=== PATIENT | female | born 1930 | race Caucasian/White ===

== ENCOUNTER 2017-02-01 18:04 | Emergency (ER) | payer MEDICARE, BC ==
[~2017-02-01] VITALS: Ht 154.9 cm; Wt 63.0 kg
[~2017-02-01 18:04] MED LIST: ASPI81 PO; CALC250T PO; CARV25TA PO; CO Q200C PO; FOSA70TA PO; LEVO.075 PO; NEUR600T PO; NITR-29 PO; NITR0.4S SL; OMEP20TA39 PO; ROSU5 PO; TRAV0.00 EACH EYE; [UNRECOGNIZED DRUG - CODE] PO
[2017-02-01 18:08] VITALS: BP 140/71; PULSE 80; RESP 16; TEMP 97.8; O2SAT 97
--- NOTE | 2017-02-01 18:22 | PD ---
HPI Chief Complaint: ENT Complaint Time Seen by Provider: 18:19 Travel History International Travel<30 days: No Contact w/Intl Traveler<30days: No Traveled to known affect area: No History of Present Illness HPI 86-year-old female with hypertension, hyperlipidemia and hypothyroidism presents to the emergency department for evaluation of bilateral ear obstructions 2 days. Patient states that she has wax blocking her ears and she has decreased hearing. States this has happened to her in the past and she's had to have them flushed. Denies any fever, chills, nausea, vomiting, dizziness , ear pain, ear pressure. No other complaints. 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 of urine pt has mortensen cath in place on08/17/15) Hypertension: Yes Immune Disorder: Yes (RHEUMATOID ARTHRITIS) Musculoskeletal: Yes (SPINAL STENOSIS OSTEOPOROSIS POLYMYALGIA) Neurologic: No Psychiatric: No Respiratory: No Myocardial Infarction: No Thyroid Disease: Yes Past Surgical History Abdominal Surgery: Yes (bowel resection r/t bowel obstruction) AICD: No Appendectomy: Yes Cardiac Surgery: No Ear Surgery: Yes Endocrine Surgery: No Eye Surgery: No Genitourinary Surgery: No Gynecologic Surgery: No Joint Replacement: Yes (BL KNEE REPLACEMENTS) Oral Surgery: No Pacemaker: No Thoracic Surgery: No Tonsillectomy: Yes Other Surgery: Yes (back surgery lower) Social History Alcohol Use: No Tobacco Use: No (quit years ago smoked only socially ) Substance Use: No Allergies-Medications (Allergen,Severity, Reaction): Coded Allergies: *MDRO Multi-Drug Resistant Organism (Verified Adverse Reaction, Unknown, ) MRSA (buttock wound) 08/2015 Reported Meds & Prescriptions Reported Meds & Active Scripts Active Reported Probiotic (Lactobacillus Acidophilus) 1 Cap Cap 1 Cap PO DAILY Zinc 50 Mg Tab 50 Mg PO DAILY Colace (Docusate Sodium) 100 Mg Cap 100 Mg PO BID PRN Omeprazole 20 Mg Tab 20 Mg PO DAILY Coenzyme Q10 (Ubidecarenone) 100 Mg Cap 100 Mg PO DAILY Calcium Citrate-Vitamin D 315-250 Mg-Unit Tab 1 Tab PO BID Vitamin C (Ascorbic Acid) 500 Mg Cap 500 Mg PO Aspirin Low Dose (Aspirin) 81 Mg Chew 81 Mg CHEW DAILY Travatan Z Opth Drops (Travoprost) 0.004 % Soln 1 Drop EACH EYE HS Synthroid (Levothyroxine Sodium) 75 Mcg Tab 75 Mcg PO DAILY Nitrostat SL (Nitroglycerin) 0.4 Mg Subl 0.4 Mg SL DIRECTED PRN 1 tablet under the tongue as needed for chest pain. Repeat every 5 minutes for a total of 3 DOSES or call 911 if NO relief. Gabapentin 600 Mg Tab 600 Mg PO TID Carvedilol 25 Mg Tab 25 Mg PO BID Review of Systems Except as stated in HPI: all other systems reviewed are Neg Physical Exam Narrative GENERAL: Well-nourished and well-developed pleasant patient in no acute distress who is nontoxic appearing. SKIN: Warm and dry. HEAD: Normocephalic and atraumatic. EYES: No injection, drainage, or hyphema noted. PERRLA. EOMI. ENT: No nasal drainage noted. Oropharynx is clear. Bilateral ear canals with cerumen impaction. Unable to view tympanic membranes. NECK: Supple and the trachea is midline. CARDIOVASCULAR: Regular rate and rhythm. RESPIRATORY: Breath sounds are equal bilaterally with no accessory muscle use, wheezing, rhonchi, or crackles. NEUROLOGICAL: Awake, alert, and oriented. Normal speech and gait. Cranial nerves are grossly intact. Data Data Last Documented VS Vital Signs Date Time Temp Pulse Resp B/P Pulse Ox O2 Delivery O2 Flow Rate FiO2 02/01/17 18:08 97.8 80 16 140/71 97 MDM Medical Decision Making Medical Screen Exam Complete: Yes Emergency Medical Condition: Yes Differential Diagnosis Cerumen impaction versus obstruction versus otitis media versus otitis externa Narrative Course 86-year-old female presents to the emergency department for evaluation of bilateral cerumen impaction. Patient is afebrile, vital signs are stable. Ear irrigation is performed successfully. I am now able to view both tympanic membranes and they are within normal limits, there is no erythema or signs of infection. Patient reports that she can now hear normally again. Patient is stable for discharge. Diagnosis Primary Impression: Impacted cerumen of both ears Referrals: Primary Care Physician Patient Instructions: General Instructions Additional Instructions: Follow-up with your Primary Care Physician. Return to the ED for any acute worsening of symptoms. Med/Other Pt SpecificInfo: No Change to Meds Disposition: 01 DISCHARGE HOME Condition: Stable Patricia Hartman February 01, 2017 18:22
[2017-02-01] MEDS ORDERED: OMEP20TA PO (18:34)
[2017-02-01] MEDS ORDERED: COLA100C3 PO (18:34)
[2017-02-01] MEDS ORDERED: CARV25TA PO (18:34)
[2017-02-01] MEDS ORDERED: GABA600T PO (18:34)
[2017-02-01] MEDS ORDERED: ZINC50TA PO (18:34)
[2017-02-01] MEDS ORDERED: CO-E100C PO (18:34)
[2017-02-01] MEDS ORDERED: LACTCAP8 PO (18:34)
[2017-02-01] MEDS ORDERED: LEVO.075 PO (18:34)
[2017-02-01] MEDS ORDERED: CALCTAB PO (18:34)
[2017-02-01] MEDS ORDERED: NITR0.4S SL (18:34)
[2017-02-01] MEDS ORDERED: ASCO500C PO (18:34)
[2017-02-01] MEDS ORDERED: ASPI81CH37 CHEW (18:34)
[2017-02-01] MEDS ORDERED: TRAV0.00 EACH EYE (18:34)
== END 2017-02-01 18:50 | disposition home or self-care (01) ==
LOC: PHEFT 18:04
DX: H61.23 Impacted cerumen, bilateral (principal); E78.00 Pure hypercholesterolemia, unspecified; E07.9 Disorder of thyroid, unspecified; Z79.82 Long term (current) use of aspirin
CPT/HCPCS: 99282

== ENCOUNTER → 2017-02-10 | Outpatient (CLI) | payer MEDICARE, BC ==
[~2017-02-10] MED LIST changes: +ASCO500C PO; -ASPI81 PO; +ASPI81CH37 CHEW; -CALC250T PO; +CALCTAB PO; -CO Q200C PO; +CO-E100C PO; +COLA100C3 PO; -FOSA70TA PO; +GABA600T PO; +LACTCAP8 PO; -NEUR600T PO; -NITR-29 PO; +OMEP20TA PO; -OMEP20TA39 PO; -ROSU5 PO; +ZINC50TA PO; -[UNRECOGNIZED DRUG - CODE] PO
[2017-02-10 13:12] LABS: AUTOMATED NEUTROPHIL # 5.8 TH/MM3 (1.8-7.7); BASOPHIL # 0.1 TH/MM3 (0-0.2); BASOPHIL % 1.4 % (0.0-2.0); EOSINOPHIL # 0.3 TH/MM3 (0-0.4); EOSINOPHIL % 3.6 % (0.0-4.0); HEMATOCRIT 40.9 % (35.0-46.0); HEMO FLAGS DIFF FINAL; LYMPHOCYTE # 1.5 TH/MM3 (1.0-4.8); MEAN CORPUSCULAR HEMOGLOBIN 29.5 PG (27.0-34.0); MEAN CORPUSCULAR HGB CONC 32.4 % (32.0-36.0); MONO % 8.2 % (0.0-8.0); NEUT % 68.8 % (16.0-70.0); PLATELET COUNT 251 TH/MM3 (150-450); RED BLOOD COUNT 4.49 MIL/MM3 (4.00-5.30); RED CELL DISTRIBUTION WIDTH 14.4 % (11.6-17.2); WHITE BLOOD COUNT 8.4 TH/MM3 (4.0-11.0)
[2017-02-10 13:51] LABS: ALKALINE PHOSPHATASE 96 U/L (45-117); ALT (GPT) 30 U/L (10-53); ANION GAP 6 MEQ/L (5-15); AST (GOT) 22 U/L (15-37); BLOOD UREA NITROGEN 19 MG/DL (7-18); CHLORIDE 105 MEQ/L (98-107); GLOMERULAR FILTRATION RATE 65 ML/MIN (>89); GLUCOSE,FASTING 93 MG/DL (74-99); HDL CHOLESTEROL 59.6 MG/DL (40.0-60.0); LDL CHOLESTEROL 144 MG/DL (0-99); POTASSIUM 4.6 MEQ/L (3.5-5.1); SODIUM (NA) 142 MEQ/L (136-145); TOTAL BILIRUBIN ADULT 0.4 MG/DL (0.2-1.0)
== END ==
LOC: PLAB 09:18
PROVIDERS: ATTEND Family Medicine
DX: E78.5 Hyperlipidemia, unspecified (principal); E03.2 Hypothyroidism due to medicaments and other exogenous substances; M06.9 Rheumatoid arthritis, unspecified; I10 Essential (primary) hypertension
CPT/HCPCS: 36415; 80053; 80061; 84443; 85025

== ENCOUNTER → 2017-04-18 | Outpatient (CLI) | payer MEDICARE, BC ==
[2017-04-18 13:03] LABS: BACTERIA, URINE MOD /hpf; BLOOD, URINE SMALL (NEG); COMMENT (UR) CULTURE INDICATED; CULTURE IF INDICATED CULTURE INDICATED; GLUCOSE,URINE NEG (NEG); KETONE, URINE NEG (NEG); MUCUS URINE FEW /lpf (OCC); SQUAMOUS EPITHELIAL CELL URINE 2 /hpf (0-5); URINE COLOR LIGHT-YELLOW (YELLW/STRAW)
[2017-04-18 13:04] LABS: NITRITE,URINE POS (NEG)
== END ==
LOC: PLAB 09:33
PROVIDERS: ATTEND Family Medicine
DX: N39.0 Urinary tract infection, site not specified (principal); B96.20 Unspecified Escherichia coli [E. coli] as the cause of diseases classified elsewhere
CPT/HCPCS: 81001; 87077; 87086; 87186

== ENCOUNTER → 2017-11-28 | Outpatient (CLI) | payer MEDICARE, BC ==
[~2017-11-28] MED LIST changes: -ASPI81CH37 CHEW; +ASPI81CH6 CHEW; -OMEP20TA PO; +OMEP20TA93 PO
[2017-11-28 13:36] LABS: BASOPHIL # 0.1 TH/MM3 (0-0.2); BASOPHIL % 0.7 % (0.0-2.0); EOSINOPHIL # 0.3 TH/MM3 (0-0.4); EOSINOPHIL % 2.4 % (0.0-4.0); HEMOGLOBIN 13.2 GM/DL (11.6-15.3); LYMPH % 13.1 % (9.0-44.0); LYMPHOCYTE # 1.4 TH/MM3 (1.0-4.8); MEAN CELL VOLUME 91.7 FL (80.0-100.0); MEAN CORPUSCULAR HEMOGLOBIN 31.1 PG (27.0-34.0); MEAN CORPUSCULAR HGB CONC 33.9 % (32.0-36.0); MEAN PLATELET VOLUME 8.9 FL (7.0-11.0); MONO % 8.9 % (0.0-8.0); MONOCYTE # 0.9 TH/MM3 (0-0.9); NEUT % 74.9 % (16.0-70.0); PLATELET COUNT 295 TH/MM3 (150-450); RED BLOOD COUNT 4.26 MIL/MM3 (4.00-5.30); WHITE BLOOD COUNT 10.7 TH/MM3 (4.0-11.0)
[2017-11-28 13:47] LABS: ALBUMIN 3.7 GM/DL (3.4-5.0); AST (GOT) 18 U/L (15-37); BICARBONATE 30.5 MEQ/L (21.0-32.0); BLOOD UREA NITROGEN 16 MG/DL (7-18); CALCIUM 9.9 MG/DL (8.5-10.1); CHLORIDE 104 MEQ/L (98-107); CREATININE 0.74 MG/DL (0.50-1.00); GLOMERULAR FILTRATION RATE 75 ML/MIN (>89); GLUCOSE,FASTING 85 MG/DL (74-99); SODIUM (NA) 140 MEQ/L (136-145)
[2017-11-28 13:48] LABS: CHOLESTEROL 145 MG/DL (120-200)
[2017-11-28 13:59] LABS: ALKALINE PHOSPHATASE 87 U/L (45-117); ALT (GPT) 22 U/L (10-53); CHOLESTEROL/ HDL RATIO 2.27 RATIO; HDL CHOLESTEROL 63.8 MG/DL (40.0-60.0); LDL CHOLESTEROL 62 MG/DL (0-99); TOTAL BILIRUBIN ADULT 0.4 MG/DL (0.2-1.0); TOTAL PROTEIN 7.1 GM/DL (6.4-8.2); TRIGLYCERIDES 97 MG/DL (42-150)
[2017-11-28 14:04] LABS: WESTERGREN SEDIMENTATION RATE 7 mm/hr (0-30)
== END ==
LOC: PLAB 08:31
PROVIDERS: ATTEND Family Medicine
DX: E78.5 Hyperlipidemia, unspecified (principal); I11.9 Hypertensive heart disease without heart failure; E03.2 Hypothyroidism due to medicaments and other exogenous substances; M06.9 Rheumatoid arthritis, unspecified
CPT/HCPCS: 36415; 80053; 80061; 84443; 85025; 85652